=== PATIENT | female | born 1975 | race Caucasian/White ===

== ENCOUNTER 2016-08-14 | Inpatient (IN) | payer SELFPAY ==
[2016-08-14] MEDS ORDERED: BUPROPION HCL100 M1 PO (20:51)
[2016-08-14] MEDS ORDERED: ADDERALL 2020 MG/TAB PO (20:51)
[2016-08-19] MEDS ORDERED: HYDROCODON-ACE1 EA16 PO (12:21)
[2016-08-19] MEDS ORDERED: ADDERALL 2020 MG/TAB PO (12:25)
[2016-08-19] MEDS ORDERED: CLEOCIN HCL300 M1 PO (12:41)
== END 2016-08-19 13:23 | DRG 603 ==
DX: L02.413 Cutaneous abscess of right upper limb (principal); F17.200 Nicotine dependence, unspecified, uncomplicated; F98.8 Other specified behavioral and emotional disorders with onset usually occurring in childhood and adolescence; L03.113 Cellulitis of right upper limb; Z23 Encounter for immunization; Z91.14 Patient's other noncompliance with medication regimen; Z88.0 Allergy status to penicillin; Z79.899 Other long term (current) drug therapy

== ENCOUNTER 2016-08-29 12:51 | Emergency (ER) | payer SELFPAY ==
[~2016-08-29 12:51] MED LIST: ADDERALL 2020 MG/TAB PO; BUPROPION HCL100 M1 PO; CLEOCIN HCL300 M1 PO; HYDROCODON-ACE1 EA16 PO
[2016-08-29] MEDS ORDERED: PREDNISONE10 M1 PO (13:17)
== END 2016-08-29 13:49 ==
LOC: EDMED 12:51
DX: L30.9 Dermatitis, unspecified (principal); F41.9 Anxiety disorder, unspecified; F32.9 Major depressive disorder, single episode, unspecified; F17.210 Nicotine dependence, cigarettes, uncomplicated; Z90.89 Acquired absence of other organs
CPT/HCPCS: J2930